=== PATIENT | male | born 1955 | race Caucasian/White ===

== ENCOUNTER 2024-02-08 20:57 | Emergency (ER) | payer MEDICARE, SELFPAY ==
[2024-02-08] VITALS (16 sets, daily range): BP systolic 110; BP diastolic 60; PULSE 77–149; RESP 13–47; TEMP 36.9; O2SAT 97–99
--- NOTE | 2024-02-08 21:10 | XR_ITS ---
The [address] [address] Patient Name: IVAN RAND MRN: [id number] date: 1955 Sex: M Assigned Patient Location: ED.MAIN Current Patient Location: ER Accession/Order Number: [id number] Exam Date: 02/08/2024 21:42 Report Date: 02/08/2024 22:06 At the request of: BRYAN PEPE Procedure: XR chest 1V EXAM: XR chest 1V HISTORY: SOB COMPARISON: None. TECHNIQUE: Single AP radiograph of the chest FINDINGS: No pneumothorax, pleural effusion or consolidation. Normal heart size. No acute osseous abnormality. High riding heads are suggestive of chronic rotator cuff injuries. XR/XR chest 1V IMPRESSION: No acute cardiopulmonary process. Electronically authenticated by: SANDRINE BURNETT Date: 02/08/2024 22:06
--- NOTE | 2024-02-08 21:10 | ECG_ITS ---
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
--- NOTE | 2024-02-08 21:13 | ED.SOB1 ---
HPI - SOB/Dyspnea General Chief Complaint: Shortness of Breath/Dyspnea Stated Complaint: Shortness of Breath Time Seen by Provider: 02/08/24 21:02 History of Present Illness HPI Narrative: 68-year-old male presents to the emergency department for shortness of breath. It started this afternoon. He has no pain at all, no chest pain and no back pain. He has not had a fever or cough. Exertion seems to make it somewhat worse. He has no history of COPD or heart problems. He does have Parkinson syndrome. His symptom has been continuous and does not seem to wax and wane except with exertion. Related Data Home Medications ?Medication ?Instructions ?Recorded ?Confirmed Unobtainable 02/08/24 02/08/24 Allergies Allergy/AdvReac Type Severity Reaction Status Date / Time No Known Drug Allergies Allergy Verified 02/08/24 21:19 Review of Systems ROS Narrative A ten point review of systems is negative except as noted above. Exam Narrative Exam Narrative: Nurses note and vital signs reviewed and patient is not hypoxic. General: The patient appears in no apparent respiratory distress. Skin: Warm, dry, no pallor noted. There is no rash noted. Head: Normocephalic, atraumatic Eye: Normal conjunctiva, no drainage Ears, Nose, Mouth, and Throat: oral mucosa is moist. Nares patent. Cardiovascular: Regular Rate and Rhythm Respiratory: Patient is in no distress, no accessory muscle use, lungs are clear to auscultation, no wheezing, rales or rhonchi Back: non-tender GI: Soft and nontender Musculoskeletal: The patient has no evidence of calf tenderness, he does have minimal edema, symmetrical pulses noted bilaterally Neurological: A&O, normal speech, tremorous from Parkinson Psychiatric: Cooperative Constitutional Vital Signs, click to edit/add: Last Vital Signs Temp 98.4 F 02/08/24 21:04 Pulse 87 02/08/24 21:04 Resp 24 02/08/24 21:04 BP 110/60 02/08/24 21:04 Pulse Ox 97 02/08/24 21:04 O2 Del Method Room Air 02/08/24 21:04 Course Vital Signs Vital signs: Vital Signs Temperature 98.4 F 02/08/24 21:04 Pulse Rate 87 02/08/24 21:04 Respiratory Rate 24 02/08/24 21:04 Blood Pressure 110/60 02/08/24 21:04 Pulse Oximetry 97 02/08/24 21:04 Oxygen Delivery Method Room Air 02/08/24 21:04 Temperature 98.4 F 02/08/24 21:04 Pulse Rate 87 02/08/24 21:04 Respiratory Rate 24 02/08/24 21:04 Blood Pressure 110/60 02/08/24 21:04 Pulse Oximetry 97 02/08/24 21:04 Oxygen Delivery Method Room Air 02/08/24 21:04 MDM - SOB/Dyspnea MDM Narrative Medical decision making narrative: Extensive workup including CTA of the chest is negative. No evidence of CHF, pneumonia, COVID, influenza or pulmonary embolism. No evidence of pneumothorax or any infectious etiology. Findings are discussed thoroughly with the patient and he will be discharged home. Follow-up with PCP if there is no improvement. Treatment diagnosis and follow-up were discussed thoroughly. Differential Diagnosis Differential diagnosis: Likely congestive heart failure, community acquired pneumonia, pulmonary embolism and other (Anxiety, pneumothorax, myocardial infarction) Lab Data Attestation: I reviewed the patient's lab results. Labs: Lab Results 02/08/24 02/08/24 Range/Units 21:17 21:21 WBC 2.8 L (4.0-11.0) 10^3/uL RBC 3.45 L (4.70-6.10) 10^6/uL Hgb 11.9 L (14.0-18.0) g/dL Hct 35.7 L (42.0-54.0) % MCV 103.5 H (80.0-94.0) fL MCH 34.5 H (25.9-34.0) pg MCHC 33.3 (29.9-35.2) g/dL RDW 13.9 (11.0-15.0) % Plt Count 72 L (150-450) 10^3/uL MPV 9.3 L (9.5-13.5) fL Seg Neuts % (Manual) 59.0 Band Neutrophils % 2.0 (0-5) % Lymphocytes % (Manual) 23.0 (20.5-60.0) % Atypical Lymphs % (Man) 2.0 % Monocytes % (Manual) 7.0 (1.7-12.0) % Eosinophils % (Manual) 7.0 (0.9-7.0) % Basophils % (Manual) 0.0 L (0.2-2.0) % Neutrophils # (Manual) 1.65 (1.4-6.5) 10^3/uL Band Neutrophils # 0.1 (0.0-0.3) 10^3/uL Lymphocytes # (Manual) 0.64 L (1.20-3.80) 10^3/uL Abs Atypical Lymphs Man 0.05 Monocytes # (Manual) 0.19 L (0.30-0.80) 10^3/uL Eosinophils # (Manual) 0.19 (0.00-0.70) 10^3/uL Basophils # (Manual) 0.00 (0.00-0.10) 10^3/uL D-Dimer 0.69 H* (<=0.59) mg/L FEU Sodium 139 (136-145) mmol/L Potassium 3.9 (3.5-5.1) mmol/L Chloride 106 (98-107) mmol/L Carbon Dioxide 26.2 (21.0-32.0) mmol/L Anion Gap 10.7 BUN 15.0 (7.0-18.0) mg/dL Creatinine 0.80 (0.70-1.30) mg/dL Est GFR ( Amer) >60 (>=60) Est GFR (Non-Af Amer) >60 (>=60) BUN/Creatinine Ratio 18.8 Glucose 101 (74-106) mg/dL Calcium 8.5 (8.5-10.1) mg/dL Troponin I High Sens <4.0 L (4.0-76.1) pg/mL Influenza Type A Ag Negative Influenza Type B Ag Negative SARS-CoV-2 Ag (CV2AG) Negative (NEGATIVE) Imaging Data Chest x-ray: Radiologist's impression: ITS Impressions Chest X-Ray 02/08/24 21:10 IMPRESSION: No acute cardiopulmonary process. Electronically authenticated by: SANDRINE BURNETT Date: 02/08/2024 22:06 Chest CTA 02/08/24 22:06 Impression: 1. No pulmonary embolism. 2. Splenomegaly. Electronically authenticated by: МАРИНА JESUS Date: 02/08/2024 23:29 ECG Data Attestation: I personally reviewed and interpreted this ECG as follows: (EKG on my interpretation shows artifact and no evidence of atrial flutter. This is artifact from his Parkinson disease) Discharge Plan Discharge Stand Alone Forms: Portal Instructions Chief Complaint: Shortness of Breath/Dyspnea Clinical Impression: Dyspnea Patient Disposition: Home, Self-Care Time of Disposition Decision: 00:08 Condition: Good Mode of Transportation: Private Vehicle Prescriptions / Home Meds: No Action Unobtainable Print Language: [place] Island[place] Instructions: Dyspnea (ED) Additional Instructions: Follow-up with your PCP if symptoms do not persist Referrals: LINDA SUMMERS [Primary Care Provider] - 1 week
[2024-02-08 21:29] LABS: Hematocrit 35.7 % (42.0-54.0); Hemoglobin 11.9 g/dL (14.0-18.0); Mean Corpuscular HGB Conc 33.3 g/dL (29.9-35.2); Mean Corpuscular Hemoglobin 34.5 pg (25.9-34.0); Mean Corpuscular Volume 103.5 fL (80.0-94.0); Mean Platelet Volume 9.3 fL (9.5-13.5); Platelet Count 72 10^3/uL (150-450); Red Blood Count 3.45 10^6/uL (4.70-6.10); Red Cell Distribution Width 13.9 % (11.0-15.0); White Blood Count 2.8 10^3/uL (4.0-11.0)
[2024-02-08 21:38] LABS: Influenza Virus A Antigen Negative; Influenza Virus B Antigen Negative; Internal Control Within Normal Limits; SARS-CoV-2 Ag NEGATIVE (NEGATIVE)
[2024-02-08 21:48] LABS: Anion Gap 10.7; BUN Creatinine Ratio 18.8; Calcium 8.5 mg/dL (8.5-10.1); Carbon Dioxide 26.2 mmol/L (21.0-32.0); Chloride 106 mmol/L (98-107); Estimated GFR (African America >60 (>=60); Estimated GFR (Non-African Ame >60 (>=60); Glucose 101 mg/dL (74-106); Potassium 3.9 mmol/L (3.5-5.1); Sodium 139 mmol/L (136-145); Troponin I High Sensitivity <4.0 pg/mL (4.0-76.1)
[2024-02-08 21:58] LABS: Atypical Lymphocytes Abs Man 0.05; Band Neutrophils Absolute 0.1 10^3/uL (0.0-0.3); Eosinophils Absolute Manual 0.19 10^3/uL (0.00-0.70); Lymphocytes Absolute Manual 0.64 10^3/uL (1.20-3.80); Monocytes Absolute Manual 0.19 10^3/uL (0.30-0.80); Segmented Neut Absolute Manual 1.65 10^3/uL (1.4-6.5)
[2024-02-08 22:00] LABS: D Dimer 0.69 mg/L FEU (<=0.59)
--- NOTE | 2024-02-08 22:06 | CT_ITS ---
The [address] [address] Patient Name: IVAN RAND MRN: [id number] date: 1955 Sex: M Assigned Patient Location: ER Current Patient Location: Accession/Order Number: [id number] Exam Date: 02/08/2024 22:50 Report Date: 02/08/2024 23:29 At the request of: BRYAN PEPE Procedure: CT angio chest CT angio chest 02/08/2024 9:50 PM CDT: History: Short of breath, elevated D-dimer, rule out PE Chest pain. Possible pulmonary embolism. Comparison: None. Technique: IV Contrast enhanced CTA imaging of the chest. Sagittal and coronal MIP reformatted images are provided. This CT exam was performed using one or more of the following dose reduction techniques: Automated exposure control, adjustment of the mA and/or KV according to patient size, or use of iterative reconstruction technique. Findings: The central airway is midline and patent. There is mild bilateral dependent atelectasis. There is no pleural effusion or pneumothorax. The heart is enlarged. There is no pericardial effusion. The pulmonary arteries are patent and normal in caliber. There is no pulmonary embolism. The thoracic aorta is patent and normal in caliber. There is atherosclerosis of the coronary arteries. The spleen is enlarged measuring 16.2 cm in length. There is a low-attenuation cyst in the medial right lobe of the liver. There is degenerative disc disease of the thoracic spine. There is bilateral gynecomastia. CT/CT angio chest Impression: 1. No pulmonary embolism. 2. Splenomegaly. Electronically authenticated by: МАРИНА JESUS Date: 02/08/2024 23:29
[2024-02-09] VITALS: PULSE 83; RESP 29; O2SAT 97
[2024-02-09 00:10] VITALS: PULSE 91; RESP 17
[2024-02-09 00:28] VITALS: O2SAT 99
== END 2024-02-09 00:30 | disposition home or self-care (01) ==
PROVIDERS: Emergency Provider Emergency Medicine; PCP Family Medicine
DX: R06.00 Dyspnea, unspecified (principal); Z20.822 Contact with and (suspected) exposure to COVID-19
CPT/HCPCS: 36415; 71045; 71275; 80048; 84484; 85007; 85027; 85378; 87804; 87811; 93005; 99285; Q9967

== ENCOUNTER 2025-09-12 08:06 | Emergency (ER) | payer MEDICARE, SELFPAY ==
[2025-09-12 08:11] VITALS: BP 127/62; PULSE 80; TEMP 36.8; O2SAT 97; BMI 28.7
--- NOTE | 2025-09-12 08:33 | CT_ITS ---
The [address] [address] Patient Name: IVAN RAND MRN: [id number] date: 1955 Sex: M Assigned Patient Location: ER Current Patient Location: .MAIN Accession/Order Number: [id number] Exam Date: 09/12/2025 09:42 Report Date: 09/12/2025 10:26 At the request of: GONZALO WHITAKER DO Procedure: CT abdomen pelvis w con CT ABDOMEN AND PELVIS WITH CONTRAST COMPARISON: None CLINICAL DATA: Right groin pain. History of inguinal hernia. Spiral images were obtained through the abdomen and pelvis following 100 mL of Omnipaque 300. This CT exam was performed using one or more following dose reduction techniques: Automated exposure control, adjustment of the mA and/or kV according to patient size, or use of iterative reconstruction technique. Limited cuts through the lung bases show bilateral gynecomastia. There is atelectasis and/or scarring, greater on the left. The heart is slightly prominent. There is streak artifact through the abdomen from patient's arms. The liver has a nodular contour compatible with cirrhosis. There is a central hepatic cyst measuring 16 mm in size. There is subtle suspected cholelithiasis. The spleen is enlarged with craniocaudal dimension of almost 20 cm. The pancreas and adrenal glands show no acute findings. The renal nephrograms are symmetric. No hydronephrosis is identified. The abdominal aorta is normal caliber. There are varices at the splenic hilum and a few near the GE junction.. There are small lymph nodes. No ascites is seen. The small bowel loops are not dilated. Stool is visualized throughout the colon. There is thoracolumbar dextroscoliotic curvature and moderate degenerative changes at the spine, greatest distally. Associated stenosis is visualized, greatest at L3-4 and L4-5. Images through the pelvis show no dilated small bowel. There is mild stool at the distal colon. No definite diverticular disease is seen. There is a right inguinal hernia. It contains mesenteric fat and nondistended small bowel containing air and fluid. No wall thickening is visualized. There is also fluid within the inguinal canal distally extending toward the scrotum. There are small benign-appearing inguinal lymph nodes. No ascites is seen. The prostate is not enlarged. There is a left lateral urinary bladder diverticulum. No other bladder abnormalities are seen. CT/CT abdomen pelvis w con IMPRESSION: CIRRHOSIS WITH PORTAL HYPERTENSION. HEPATIC CYST. SUSPECTED MINOR CHOLELITHIASIS. NO BOWEL OR URINARY TRACT OBSTRUCTION. RIGHT INGUINAL HERNIA CONTAINING MESENTERIC FAT AND NONOBSTRUCTED SMALL BOWEL. URINARY BLADDER DIVERTICULUM. Impression dictated by: Blanche Bobo M.D. 09/12/2025 10:26 AM Dictation Location: [place] [address] Electronically authenticated by: [id number] Y Date: 09/12/2025 10:26
[2025-09-12] MEDS: OXYCODONE HCL 5 MG TABLET PO (08:50)
[2025-09-12 09:13] LABS: Lactate/Lactic Acid 1.3 mmol/L (0.4-2.0)
[2025-09-12 09:19] LABS: Albumin Globulin Ratio 0.8; Albumin Level 2.7 g/dL (3.4-5.0); Alkaline Phosphatase 79 U/L (46-116); Anion Gap 10.6; Aspartate Amino Transferase 31 U/L (15-37); Blood Urea Nitrogen 21.0 mg/dL (7.0-18.0); Calcium 8.5 mg/dL (8.5-10.1); Carbon Dioxide 26.9 mmol/L (21.0-32.0); Chloride 109 mmol/L (98-107); Estimated GFR (African America >60 (>=60 mL/min/1.73m^2); Estimated GFR (Non-African Ame >60 (>=60 mL/min/1.73m^2); Globulin 3.6 g/dL; Glucose 105 mg/dL (74-106); Potassium 3.5 mmol/L (3.5-5.1); Sodium 143 mmol/L (136-145); Total Protein 6.3 g/dL (6.4-8.2)
--- NOTE | 2025-09-12 09:29 | ED.GENADUL1 ---
HPI HPI - General Adult General Chief complaint: Abdominal Pain Stated complaint: GROIN & L LEG PAIN Time Seen by Provider: 09/12/25 08:07 Source: patient Mode of arrival: ambulance Limitations: no limitations History of Present Illness HPI narrative: Patient is a 70-year-old male, history significant for Parkinson disease and a known right inguinal hernia, presenting to the emergency department from senior living for right inguinal hernia pain. Patient states he has intermittent pain in the right hernia, this feels like similar episodes. He states that he has not a candidate for surgery, and has been evaluated by his surgeons in the past. Other than pain in the right inguinal region, he denies any other symptoms. He denies any chest pain or shortness of breath. No abdominal pain, nausea, or vomiting. No constipation or diarrhea, his last bowel movement was yesterday evening. He denies any dysuria or hematuria. Related Data Home Medications ?Medication ?Instructions ?Recorded ?Confirmed Unobtainable 02/08/24 02/08/24 Allergies Allergy/AdvReac Type Severity Reaction Status Date / Time No Known Drug Allergies Allergy Verified 09/12/25 08:15 Opioid HPI Opioid Management Most Recent Opioid Data: Last Pain Scale 9 Today, 08:28 Review of Systems ROS Status of ROS 10 or more systems reviewed and unremarkable except as noted in history and below PFSH PFSH Social History Little interest or pleasure in doing things: not at all Feeling down, depressed, or hopeless: not at all Exam Narrative Exam Narrative: CONSTITUTIONAL: Well-appearing, answering questions and following commands appropriately SKIN: Was warm and dry. EYES: Sclerae white. EARS, NOSE, THROAT: Moist oral mucosa. RESPIRATORY: Clear to auscultation bilaterally, no wheezes, crackles, or stridor, no use of accessory muscles CARDIOVASCULAR: Normal rate and regular rhythm. There is no S3, S4, murmur, rub. GASTROINTESTINAL: Abdomen soft, nontender, nondistended. No rebound tenderness or guarding. There is mild tenderness to palpation of the right inguinal hernia without overlying skin changes. The hernia feels soft, and easily reducible through the hernia defect. MUSCULOSKELETAL: Resting tremor noted. No peripheral edema. NEUROLOGIC: Patient is awake and alert. Facies were symmetrical. Constitutional Vital Signs, click to edit/add: Last Vital Signs Temp 98.3 F 09/12/25 08:11 Pulse 80 09/12/25 08:11 Resp 16 09/12/25 08:11 BP 127/62 09/12/25 08:11 Pulse Ox 97 09/12/25 08:11 O2 Del Method Room Air 09/12/25 08:11 Course Vital Signs Vital signs: Vital Signs Temperature 98.3 F 09/12/25 08:11 Pulse Rate 80 09/12/25 08:11 Respiratory Rate 16 09/12/25 08:11 Blood Pressure 127/62 09/12/25 08:11 Pulse Oximetry 97 09/12/25 08:11 Oxygen Delivery Method Room Air 09/12/25 08:11 Temperature 98.3 F 09/12/25 08:11 Pulse Rate 80 09/12/25 08:11 Respiratory Rate 16 09/12/25 08:11 Blood Pressure 127/62 09/12/25 08:11 Pulse Oximetry 97 09/12/25 08:11 Oxygen Delivery Method Room Air 09/12/25 08:11 Medical Decision Making MDM Narrative Medical decision making narrative: Patient is a 70-year-old male presenting to the emergency department for pain of his right inguinal hernia that began last night. His vital signs are within normal limits. He is afebrile and hemodynamically stable. Examination as noted above. Clinically, the hernia is soft, only minimally tender without overlying skin changes. I am able to easily reduce it back into the defect. I have low suspicion for acute incarceration/strangulation, however CT was obtained to rule out these etiologies. Laboratory studies were obtained as well, he was given oral oxycodone for pain. CT abdomen/pelvis independently reviewed and interpreted by myself and radiology demonstrated no bowel obstruction or evidence of incarceration/strangulation. Laboratory studies were unremarkable. No significant electrolyte or metabolic derangement. No evidence of acute kidney injury. No significant anemia, leukocytosis, or thrombocytopenia. No transaminitis or hyperbilirubinemia. Lactic acid level negative. Urinalysis was negative for acute infection. On reevaluation, patient states he feels significantly improved. I do believe he is stable for discharge. They were instructed to follow up with his PCP as needed. Return precautions were given including any new or worsening symptoms. Patient understands and agrees to the plan. FINAL IMPRESSION: #Acute right groin pain #History of right inguinal hernia DISPOSITION: Discharged to senior living CONDITION: Good Medical Records Medical records reviewed: Yes I reviewed the patient's medical records Lab Data Lab results reviewed: Yes I reviewed the patient's lab results Labs: Lab Results 09/12/25 09/12/25 09/12/25 Range/Units 08:43 09:30 10:40 WBC 3.1 L (4.0-11.0) 10^3/uL RBC 3.22 L (4.70-6.10) 10^6/uL Hgb 11.0 L (14.0-18.0) g/dL Hct 31.7 L (42.0-54.0) % MCV 98.4 H (80.0-94.0) fL MCH 34.2 H (25.9-34.0) pg MCHC 34.7 (29.9-35.2) g/dL RDW 13.3 (11.0-15.0) % Plt Count 52 L (150-450) 10^3/uL MPV 8.7 L (9.5-13.5) fL Seg Neuts % (Manual) 73.0 (43.0-75.0) Lymphocytes % (Manual) 10.0 L (20.5-60.0) % Monocytes % (Manual) 10.0 (1.7-12.0) % Eosinophils % (Manual) 6.0 (0.9-7.0) % Basophils % (Manual) 1.0 (0.2-2.0) % Neutrophils # (Manual) 2.26 (1.4-6.5) 10^3/uL Lymphocytes # (Manual) 0.31 L (1.20-3.80) 10^3/uL Monocytes # (Manual) 0.31 (0.30-0.80) 10^3/uL Eosinophils # (Manual) 0.18 (0.00-0.70) 10^3/uL Basophils # (Manual) 0.03 (0.00-0.10) 10^3/uL Sodium 143 (136-145) mmol/L Potassium 3.5 (3.5-5.1) mmol/L Chloride 109 H (98-107) mmol/L Carbon Dioxide 26.9 (21.0-32.0) mmol/L Anion Gap 10.6 BUN 21.0 H (7.0-18.0) mg/dL Creatinine 0.80 (0.70-1.30) mg/dL Est GFR ( Amer) >60 (>=60 mL/min/1.73m^2) Est GFR (Non-Af Amer) >60 (>=60 mL/min/1.73m^2) BUN/Creatinine Ratio 26.3 Glucose 105 (74-106) mg/dL Lactate 1.3 (0.4-2.0) mmol/L Calcium 8.5 (8.5-10.1) mg/dL Total Bilirubin 0.9 (0.2-1.0) mg/dL AST 31 (15-37) U/L ALT 8 L (16-63) U/L Alkaline Phosphatase 79 (46-116) U/L Total Protein 6.3 L (6.4-8.2) g/dL Albumin 2.7 L (3.4-5.0) g/dL Globulin 3.6 g/dL Albumin/Globulin Ratio 0.8 Urine Color Yellow (YELLOW) Urine Clarity Clear (CLEAR) Urine pH 6.0 (5.0-9.0) Ur Specific [place] 1.020 (1.005-1.025) Urine Protein Negative (NEG/TRACE) mg/dL Urine Glucose (UA) Negative (NEGATIVE) mg/dL Urine Ketones Negative (NEGATIVE) mg/dL Urine Occult Blood Negative (NEGATIVE) Urine Nitrite Negative (NEGATIVE) Urine Bilirubin Negative (NEGATIVE) Urine Urobilinogen 0.2 (0.2-1.0) EU/dL Ur Leukocyte Esterase Negative (NEGATIVE) Imaging Data CT scan - abdomen: Attestation: I personally reviewed and interpreted this imaging study as follows: Radiologist's impression: ITS Impressions Abdomen/Pelvis CT 09/12/25 08:33 IMPRESSION: CIRRHOSIS WITH PORTAL HYPERTENSION. HEPATIC CYST. SUSPECTED MINOR CHOLELITHIASIS. NO BOWEL OR URINARY TRACT OBSTRUCTION. RIGHT INGUINAL HERNIA CONTAINING MESENTERIC FAT AND NONOBSTRUCTED SMALL BOWEL. URINARY BLADDER DIVERTICULUM. Impression dictated by: Blanche Bobo M.D. 09/12/2025 10:26 AM Dictation Location: [place] [address] Electronically authenticated by: [id number] Y Date: 09/12/2025 10:26 Discharge Plan Discharge Chief Complaint: Abdominal Pain Clinical Impression: Rt groin pain Patient Disposition: Home, Self-Care Time of Disposition Decision: 11:04 Condition: Good Mode of Transportation: Private Vehicle Prescriptions / Home Meds: No Action Unobtainable Print Language: Dutch Instructions: Inguinal Hernia (ED) Referrals: LINDA SUMMERS [Primary Care Provider, Family Practice] - 1 week
[2025-09-12 09:32] LABS: Alanine Aminotransferase 8 U/L (16-63)
--- NOTE | 2025-09-12 09:33 | SWNOTE1 ---
SW received a call from July at [facility] and pt is from there facility. SW to continue to updated them for continuity of care.
[2025-09-12 09:35] LABS: Hematocrit 31.7 % (42.0-54.0); Hemoglobin 11.0 g/dL (14.0-18.0); Mean Corpuscular HGB Conc 34.7 g/dL (29.9-35.2); Mean Corpuscular Hemoglobin 34.2 pg (25.9-34.0); Mean Corpuscular Volume 98.4 fL (80.0-94.0); Platelet Count 52 10^3/uL (150-450); Red Blood Count 3.22 10^6/uL (4.70-6.10); White Blood Count 3.1 10^3/uL (4.0-11.0)
[2025-09-12 09:40] LABS: Basophils Abs Manual 0.03 10^3/uL (0.00-0.10); Basophils Percent Manual 1.0 % (0.2-2.0); Eosinophils Absolute Manual 0.18 10^3/uL (0.00-0.70); Eosinophils Percent Manual 6.0 % (0.9-7.0); Lymphocytes Absolute Manual 0.31 10^3/uL (1.20-3.80); Lymphocytes Percent Manual 10.0 % (20.5-60.0); Monocytes Absolute Manual 0.31 10^3/uL (0.30-0.80); Monocytes Percent Manual 10.0 % (1.7-12.0); Segmented Neut Absolute Manual 2.26 10^3/uL (1.4-6.5); Segmented Neutrophils % Manual 73.0 (43.0-75.0)
[2025-09-12 10:59] LABS: Glucose Urine UA NEGATIVE (NEGATIVE)
== END 2025-09-12 12:00 | disposition home or self-care (01) ==
PROVIDERS: Emergency Provider Student in an Organized Health Care Education/Training Program; PCP Family Medicine
DX: R10.31 Right lower quadrant pain (principal); K40.90 Unilateral inguinal hernia, without obstruction or gangrene, not specified as recurrent; G20.A1 Parkinson's disease without dyskinesia, without mention of fluctuations
CPT/HCPCS: 36415; 74177; 80053; 81001; 81003; 83605; 85007; 85027; 99285; Q9967